=== PATIENT | male | born 2000 | race Caucasian/White ===

== ENCOUNTER 2022-01-14 01:25 | Emergency (ER) | payer OTHER ==
[~2022-01-14] VITALS: Ht 182.9 cm; Wt 127.0 kg
[~2022-01-14 01:25] MED LIST: motrin
[2022-01-14 01:50] VITALS: BP 136/79
--- NOTE | 2022-01-14 01:53 | NUR ---
TO LOBBY A/W BED AMBULATORY
--- NOTE | 2022-01-14 02:30 | NUR ---
SEEN AND EXAMINED BY LUIS E
[2022-01-14] MEDS ORDERED: diphenhydrAMINE 50 MG/ML VIAL IM ONE (02:35)
[2022-01-14] MEDS ORDERED: PRED20TA5 PO (03:41)
[2022-01-14] MEDS ORDERED: DIPH25TA53 PO (03:41)
[2022-01-14] MEDS ORDERED: EPIN1KIT31 IM (03:41)
[2022-01-14 03:50] VITALS: BP 119/80
--- NOTE | 2022-01-14 03:50 | NUR ---
Patient discharged with v/s stable. Written and verbal after care instructions given and explained. Patient alert, oriented and verbalized understanding of instructions. Ambulatory with steady gait. All questions addressed prior to discharge. ID band removed. Patient advised to follow up with PMD. Rx of BENADRYL, EPIPEN.[email or web address] given. Patient educated on indication of medication including possible reaction and side effects. Opportunity to ask questions provided and answered.
== END 2022-01-14 03:50 | disposition home or self-care (01) ==
LOC: MED 01:25
DX: L50.9 Urticaria, unspecified (principal)
CPT/HCPCS: 96372; 99283; J1200